=== PATIENT | male | born 1955 | race Caucasian/White ===

== ENCOUNTER 2021-12-18 11:45 | Emergency (ER) | payer BC, SELFPAY ==
--- NOTE | 2021-12-18 | ECG_ITS ---
Test Reason : abd pain Blood Pressure : / mmHG Vent. Rate : 096 BPM Atrial Rate : 096 BPM P-R Int : 156 ms QRS Dur : 078 ms QT Int : 382 ms P-R-T Axes : 078 060 005 degrees QTc Int : 482 ms Sinus rhythm with Premature supraventricular complexes Otherwise normal ECG No previous ECGs available Referred By: Generic ED Physician Electronically Signed By:Arsh Muñoz
--- NOTE | ~2021-12-18 | US_ITS ---
EXAMINATION: US ABDOMEN LIMITED, ultrasound gallbladder CLINICAL INFORMATION: Abdominal pain. COMPARISON: CT abdomen pelvis 12/18/2021 TECHNIQUE: Real-time imaging of the gallbladder only.. FINDINGS; GALLBLADDER: There are small gallstones layer dependently in the gallbladder. Largest measuring 6 mm. There is no gallbladder wall thickening or pericholecystic fluid. COMMON BILE DUCT: Normal in caliber measuring 0.3 cm in diameter. US/US abdomen limited IMPRESSION: Cholelithiasis. No acute change of gallbladder wall. No bile duct dilatation.
--- NOTE | ~2021-12-18 | CT_ITS ---
EXAMINATION: CT ABDOMEN AND PELVIS WITH CONTRAST CLINICAL INFORMATION: Right upper quadrant tenderness. Bloating. Rule out biliary disease. COMPARISON: None TECHNIQUE: Multidetector volumetric images were obtained from the superior aspect of the liver through the pubic symphysis following administration 85 mL of Omnipaque 350 intravenous contrast. Sagittal and coronal reformatted images were obtained on the technologist's workstation. Oral contrast: Yes This CT examination was performed using dose optimization techniques as appropriate, variously including the following: *Automated exposure control *Adjustment of mA and/or kV according to patient size (this includes techniques or standardized protocols for targeted exams where dose is matched to indication/reason for exam; i.e. extremities or head) *Use of iterative reconstruction technique DLP: 637 mGy-cm FINDINGS: LUNG BASES: The visualized lung bases are unremarkable. LIVER, GALLBLADDER, AND BILIARY TREE: The gallbladder is upper normal in size. No gallstones are appreciated by CT scan. There is question of gallbladder wall thickening or pericholecystic fluid adjacent to the neck of the gallbladder. There are 2 small low-attenuation lesions in the left lobe of the liver probably representing cysts. There is no intrahepatic or extrahepatic biliary duct dilatation. The liver is slightly low in attenuation suggestive of fatty infiltration. PANCREAS: There is fatty replacement of the head of the pancreas. The pancreas is otherwise unremarkable. SPLEEN: Unremarkable. ADRENAL GLANDS: Unremarkable. KIDNEYS AND URETERS: There are two 1 cm cysts in the left kidney. There is a small stone in the lower pole of the left kidney. BLADDER: Unremarkable. GASTROINTESTINAL TRACT: There is diverticulosis of the colon. There is wall thickening of the sigmoid colon and it is difficult to exclude mild diverticulitis. There is a small diverticulum of the second portion duodenum adjacent to the pancreatic head. No evidence of obstruction, perforation or abscess is seen. Small and large bowel is otherwise unremarkable. Appendix is unremarkable. There may be a small esophageal hernia. The stomach is otherwise unremarkable. ABDOMINAL WALL: No significant hernia is appreciated. LYMPH NODES: Normal. VASCULAR: Unremarkable. PELVIC VISCERA: Unremarkable. OSSEOUS STRUCTURES: There are degenerative changes spine. CT/CT abdomen pelvis w con IMPRESSION: Upper normal-size gallbladder. Question gallbladder wall thickening versus pericholecystic fluid adjacent to the neck of the gallbladder. Findings are questionable for cholecystitis. Follow-up ultrasound recommended. Mild fatty infiltration of the liver. Liver and left renal cysts. Small nonobstructing left renal stone. Diverticulosis of the colon. There is wall thickening of the sigmoid colon and it is difficult to exclude mild sigmoid diverticulitis Fleischner guidelines were followed.
[2021-12-18 12:00] VITALS: BP 146/83; BP 190/90; PULSE 106; PULSE 97; RESP 22; TEMP 36.1; O2SAT 98; O2SAT 99; BMI 26.9
[2021-12-18 12:21] LABS: MANUAL DIFF FLAG NO
[2021-12-18 12:22] LABS: Basophils Percent Auto 0.1 % (0-2); Hematocrit 40.6 % (42.0-52.0); Hemoglobin 14.2 g/dl (14.0-18.0); Imm Gran Pct Auto 0.7 % (0.0-0.4); Lymphocytes Percent Auto 6.8 % (20-40); Mean Corpuscular Hemoglobin 29.2 pg (27.0-33.0); Mean Corpuscular Volume 83.4 fL (80.0-98.0); Mean Platelet Volume 9.4 fL (9.4-12.4); Monocytes Absolute Auto 0.6 X10*3/uL (0.1-1.2); Monocytes Percent Auto 3.9 % (2-11); Neutrophils Absolute Auto 12.7 x10*3/uL (2.0-8.3); Neutrophils Percent Auto 88.5 % (45-73); Platelet Count 243 X10*3/uL (160-400); Red Blood Count 4.87 X10*6/uL (4.60-5.80); Red Cell Distribution Width 13.2 % (11.0-16.0); White Blood Count 14.4 X10*3/uL (4.8-10.8)
[2021-12-18 12:30] LABS: COVID-19 Test Positive (Negative)
[2021-12-18 12:42] LABS: Alanine Aminotransferase 32 U/L (0-40); Albumin Level 4.5 g/dL (3.5-5.0); Alkaline Phosphatase 76 U/L (39-117); Anion Gap 14 (12-20); Aspartate Amino Transferase 20 U/L (5-37); Bilirubin Direct 0.3 mg/dL (0.0-0.5); Bilirubin Total 0.6 mg/dL (0.0-1.0); Blood Urea Nitrogen 17 mg/dL (9-16); Calcium 9.9 mg/dL (8.4-10.2); Carbon Dioxide 25 mmol/L (22-29); Chloride 98 mmol/L (96-108); Creatinine Clr Calc Pharmacy 80.8; Estimated Glomerular Filt Rate > 60; Glucose Random 250 mg/dL (60-115); Lipase 20 U/L (8-78); Potassium 4.1 mmol/L (3.3-5.1); Sodium 133 mmol/L (135-145)
--- NOTE | 2021-12-18 13:01 | ED_ITS ---
HPI - Abdominal Pain General Chief Complaint: Abdominal Pain Stated Complaint: upper abd pain x12 hours Time Seen by Provider: 12/18/21 12:30 Source: patient Mode of arrival: EMS Limitations: no limitations History of Present Illness HPI narrative: 66-year-old male who presents emergency department for evaluation of abdominal pain. He states that the pain woke him up from sleep last night approximately 12 hours prior to coming to the emergency department. States the pain came on suddenly. Describes the pain is a constant, bloated sensation which is 8/10. This is his 1st episode of this type of pain. He has had associated nausea and has had 3-4 episodes of emesis with no blood in the emesis. The patient states that he had a normal bowel movement yesterday. Today he felt constipated and bloated and tried to Fleet's enemas with no results and no relief his pain. The patient denied fever, chills, chest pain, shortness of breath, dyspnea on exertion, myalgias arthralgias. The patient states that he received 3 shots of the Moderna COVID-19 vaccine with his 3rd shot in September 2021. Related Data Previous Rx's Medication Instructions Recorded ciprofloxacin HCl 500 mg tablet 500 mg PO Q12H 10 Days #20 tab 12/18/21 (Cipro) metronidazole 500 mg tablet 500 mg PO TID 10 Days #30 tab 12/18/21 morphine 15 mg immediate release 15 mg PO Q4-6H PRN #14 tab 12/18/21 tablet Allergies Allergy/AdvReac Type Severity Reaction Status Date / Time No Known Allergies Allergy Verified 12/18/21 12:03 Review of Systems Review of Systems Yes all other systems are reviewed and are negative Physical Exam Vital Signs: Vital Signs: Last Vital Signs Temp 97.0 F 12/18/21 12:00 Pulse 99 12/18/21 14:38 Resp 16 12/18/21 14:38 BP 142/79 H 12/18/21 14:38 Pulse Ox 94 12/18/21 14:38 BMI result Body Mass Index 26.9 Const: Other: Awake, alert, male patient, in distress secondary to his abdominal pain, answers all questions appropriately HENMT: Head: Yes normal to inspection, Yes normocephalic and Yes atraumatic Ears: external ears normal General nose exam: Normal external nose present Face and sinus: Yes normal facial exam Mouth: Normal oral and palatal mucosa present Throat: Yes posterior oropharynx normal Eyes: General: appearance normal, both eyes and all related structures Pupils: Equal, round and reactive pupils present Neck: Neck: Yes normal visual inspection, Yes no lymphadenopathy, Yes trachea midline and Yes supple Chest: Chest palpation & inspection: normal inspection of the chest and normal palpation of entire chest wall Resp: Effort & Inspection: normal respiratory effort and able to speak in complete sentences Auscultation: clear to auscultation bilaterally Cardio: Rate: regular rate Rhythm: regular rhythm Heart sounds: S1 syed l heart sound present, S2 normal heart sound present and no murmurs GI: Inspection: Yes normal to inspection and Yes distended Palpation (GI): Soft to palpation, Tenderness to palpation present (GI) (Rgpg-[id number] di ffuse tenderness with moderate to severe tnder RUQ) in the RUQ and no guarding Auscultation: High-pitched bowel sounds present Rectal Exam - Male: Yes normal sphincter tone and Yes heme negative stool : General: Yes no CVA tenderness Back/Spine/Pelvis: Back: no CVA tenderness Skin: General skin exam: no rashes or lesions noted Neuro: Cranial nerves: Yes CN's II-XII intact bilaterally and Yes Equal, round and reactive pupils present Cognition (Neuro): normal cognition Motor exam (neuro): 5/5 motor strength present throughout Extrem: General: Yes normal to inspection Psych: Appearance: grossly normal Speech and movement: Normal speech and movement present Affect: normal affect Attitude: cooperative Thought process: Normal thought process present Thought content: Normal thought content present Course Course Course Narrative: 66-year-old male who presents emergency department for evaluation of abdominal pain which began last night approximately 12 hours prior to coming the emergency room with nausea, vomiting, bloated sensation. Patient had normal bowel movement yesterday but no bowel movement today. The patient vital signs revealed an elevated blood pressure of 146/83, elevated respiratory rate of 22. Patient's abdomen does appear to be distended, he has [id number] diffuse tenderness with increased tenderness in the right upper quadrant. He does have high-pitched bowel sounds. Differential includes was not limited to biliary disease, pancreatitis, bowel obstruction, constipation. Laboratory evaluation will be obtained. CT scan of the abdomen pelvis with IV contrast was ordered. Patient's pain was treated with morphine 4 mg IV, Toradol 15 mg IV and Zofran 4 mg IV. Patient was also given normal saline IV x1 L. 1313: Laboratory evaluation: WBC elevated 14,400, glucose elevated 250, lipase was normal, LFTs were normal, COVID-19 is positive. Twelve EKG was unremarkable. CT scan of the abdomen pelvis with IV contrast revealed then upper normal size gallbladder with question gallbladder wall thickening versus pericholecystic fluid adjacent to the neck of the gallbladder, concerning for possible cholecystitis The patient also had wall thickening of the sigmoid colon with diverticulosis, unable to exclude diverticulitis. Given these findings, I ordered Levaquin 500 mg IV and Flagyl 500 mg IV. The patient will get a right upper quadrant ultrasound to evaluate his gallbladder. Patient states that his pain is resolved after the above treatment and he does not want any further medications at this time. 1716: The ultrasound revealed gallstones only with no evidence of gallbladder wall thickening/cholecystitis. I did discuss this finding with the patient. The patient was given a another dose of morphine 4 mg IV. The patient's will be discharged home and started on ciprofloxacin 500 mg q.12 hours times 10 days, Flagyl 500 mg 3 times a day times 10 days and Tylenol and ibuprofen with morphine 15 mg every 4-6 hours as needed for pain not relieved by [id number] medications. Patient was given verbal and printed instructions and discharged home. He was told that he will need to isolate for 7-10 days or until he is asymptomatic secondary to his COVID-19 infection. MDM - Abdominal Pain Lab Data Result diagrams: 12/18/21 12:15 12/18/21 12:15 Labs: Lab Results 12/18/21 12/18/21 12/18/21 Range/Units 12:15 12:15 12:15 WBC 14.4 H (4.8-10.8) X10*3/uL RBC 4.87 (4.60-5.80) X10*6/uL Hgb 14.2 (14.0-18.0) g/dl Hct 40.6 L (42.0-52.0) % MCV 83.4 (80.0-98.0) fL MCH 29.2 (27.0-33.0) pg MCHC 35.0 (31.0-36.0) g/dl RDW 13.2 (11.0-16.0) % Plt Count 243 (160-400) X10*3/uL MPV 9.4 (9.4-12.4) fL Immature Gran % (Auto) 0.7 H (0.0-0.4) % Neut % (Auto) 88.5 H (45-73) % Lymph % (Auto) 6.8 L (20-40) % Greer % (Auto) 3.9 (2-11) % Eos % (Auto) 0.0 (0-4) % Baso % (Auto) 0.1 (0-2) % Lymph # (Auto) 1.0 L (1.2-4.9) X10*3/uL Greer # (Auto) 0.6 (0.1-1.2) X10*3/uL Eos # (Auto) 0.0 (0.0-0.4) X10*3/uL Baso # (Auto) 0.0 (0.0-0.2) X10*3/uL Abs Immat Gran (auto) 0.10 H (0.00-0.03) X10*3/uL Absolute Neuts (auto) 12.7 H (2.0-8.3) x10*3/uL Absolute Nucleated RBC 0.000 (0.0-0.012) X10*3/uL Nucleated RBC % (auto) 0.0 (0.0-0.2) /100WBC Sodium 133 L (135-145) mmol/L Potassium 4.1 (3.3-5.1) mmol/L Chloride 98 (96-108) mmol/L Carbon Dioxide 25 (22-29) mmol/L Anion Gap 14 (12-20) BUN 17 H (9-16) mg/dL Creatinine 0.94 (0.5-1.4) mg/dL Estim Creat Clear Calc 80.8 Estimated GFR > 60 Random Glucose 250 H (60-115) mg/dL Calcium 9.9 (8.4-10.2) mg/dL Total Bilirubin 0.6 (0.0-1.0) mg/dL Direct Bilirubin 0.3 (0.0-0.5) mg/dL AST 20 (5-37) U/L ALT 32 (0-40) U/L Alkaline Phosphatase 76 (39-117) U/L Total Protein 8.0 (6.5-8.0) g/dL Albumin 4.5 (3.5-5.0) g/dL Lipase 20 (8-78) U/L COVID-19 (JON) Positive A (Negative) COVID-19 Clin Com See Note ECG Data Attestation: I personally reviewed and interpreted this ECG as follows: Interpretation: Normal sinus rhythm rate of 96, normal OR, QRS interval, prolonged QTC interval of 482 milliseconds, frequent PACs, no PVCs, no ST segment elevation, no ST segment depression. Discharge Plan Discharge Clinical Impression: Diverticulitis, Asymptomatic gallstones, COVID-19 virus infection Patient Disposition: Home, Self-Care Instructions: Diverticulitis (ED), Gallstones (ED), COVID-19 (Coronavirus Disease 2019) (ED) Additional Instructions: Your CT scan is consistent with diverticulitis of the sigmoid colon (the left lower part of your abdomen). The ultrasound revealed that you have gallstones in her gallbladder but no evidence of inflammation of your gallbladder or liver at this time which is reassuring. Your COVID-19 test is positive. Take ibuprofen 200 mg pills, 3 pills every 6 hours as needed for pain. Take Tylenol (acetaminophen) 500 mg pills, 2 pills every 4-6 hours as needed for pain. For pain not relieved by ibuprofen or Tylenol take morphine 15 mg pills, 1 pill every 4 hours as needed for pain. Do not drive or work while taking this medication since they can cause sleepiness. Morphine is a narcotic medication that can be addicting. If you are concerned about addiction you can ask the pharmacist for less pills or do not get this prescription filled. Take ciprofloxacin 500 mg pills, 1 pill every 12 hours for 10 days. Take your 1st dose of this medication tomorrow at 6:00 p.m.. Take Flagyl (metronidazole) 500 mg pills, 1 pill every 6 hours for 10 days. Take your 1st dose of this medication tomorrow morning. Follow-up with your doctor in 2 days. Please return to the emergency department if your symptoms get worse or if you develop any symptoms that are concerning to you. Your COVID-19 test was positive, you will need to isolate for 7-10 days or until your asymptomatic, you should watch for signs pneumonia which include chest pain, cough, shortness of breath, shortness of breath with exertion. Prescriptions: New metronidazole 500 mg tablet 500 mg PO TID 10 Days Qty: 30 RF: 0 ciprofloxacin HCl [Cipro] 500 mg tablet 500 mg PO Q12H 10 Days Qty: 20 RF: 0 morphine 15 mg tablet 15 mg PO Q4-6H PRN (Reason: pain) Qty: 14 RF: 0 PMFSH Past Medical History Medical History (Updated 12/18/21 @ 17:21 by Ronald Melton MD) GERD (gastroesophageal reflux disease) Surgical History (Updated 12/18/21 @ 12:03 by Alexsandra Neves) H/O cardiac radiofrequency ablation Social History Social History Alcohol intake: current Alcohol intake frequency: holidays/special occasions only Patient Tobacco Use Status: Never used Tobacco Use of substances other than those prescribed or required for medical reasons: No Advance Directives: No Advance Directives Information Provided: No
[2021-12-18] MEDS: ondansetron HCL 4 MG/2 ML VIAL IVPUSH (13:02)
[2021-12-18] MEDS: Ketorolac Tromethamine 30 MG/ML VIAL 15 MG IVPUSH (13:03)
[2021-12-18] MEDS: Morphine Sulfate 4 MG/ML CARTRIDGE IVPUSH ×2 (13:03→17:28)
[2021-12-18] MEDS: iohexoL 350 MG/ML 100 ML INFUS..BTL 85 ML IV (14:00)
[2021-12-18 14:38] VITALS: BP 142/79; PULSE 99; RESP 16; O2SAT 94
[2021-12-18] MEDS: metroNIDAZOLE/NS 500 MG/100 ML PIGGYBACK 100 MG IV (16:15)
[2021-12-18 17:27] VITALS: BP 142/73; PULSE 101; RESP 16; O2SAT 96
[2021-12-18] MEDS: levoFLOXacin/D5W 500 MG/100 ML PIGGYBACK 100 MG IV (17:28)
[2021-12-18 18:00] VITALS: BP 124/75; PULSE 106; RESP 16; TEMP 37.2; O2SAT 98
== END 2021-12-18 19:34 | disposition home or self-care (01) ==
PROVIDERS: Emergency Provider Emergency Medicine Emergency Medical Services; PCP General Practice
DX: U07.1 COVID-19 (principal); K57.92 Diverticulitis of intestine, part unspecified, without perforation or abscess without bleeding; K80.20 Calculus of gallbladder without cholecystitis without obstruction; K21.9 Gastro-esophageal reflux disease without esophagitis; Z20.822 Contact with and (suspected) exposure to COVID-19
CPT/HCPCS: 74177; 76705; 80053; 82248; 83690; 85025; 87635; 93005; 96365; 96375; 96376; 99285; J1885; J1956; J2270; J2405; Q9967

== ENCOUNTER 2022-08-04 14:15 | Outpatient (REF) | payer MEDICARE, OTHER, SELFPAY ==
[2022-08-04 18:40] LABS: CT PCR NOT DETECTED (Not Detect.); NG PCR NOT DETECTED (Not Detect.)
[2022-08-05 09:26] LABS: HIV AB/AG Nonreactive (Nonreactive); HIV Num 1 0.08 S/CO (0.00-0.99)
[2022-08-06 06:13] LABS: Syphilis Screen Nonreactive (Nonreactive)
[2022-08-12 16:17] LABS: HSV 1 IgM IFA Negative (Negative); HSV 2 IgM IFA Negative (Negative)
== END 2022-08-04 14:16 | disposition home or self-care (01) ==
LOC: HO.HMGCLDS 14:15
PROVIDERS: PCP Internal Medicine; Visit Provider Emergency Medicine
DX: Z11.3 Encounter for screening for infections with a predominantly sexual mode of transmission (principal); Z11.4 Encounter for screening for human immunodeficiency virus [HIV]; Z20.2 Contact with and (suspected) exposure to infections with a predominantly sexual mode of transmission
CPT/HCPCS: 36415; 86695; 86696; 86780; 87255; 87389; 87491; 87591

== ENCOUNTER 2022-08-04 14:15 | Outpatient (REF) | payer MEDICARE, OTHER, SELFPAY | END 2022-08-04 14:16 | disposition home or self-care (01) | LOC: HO.LAB 14:15 | PROVIDERS: Visit Provider Emergency Medicine | DX: Z13.89 Encounter for screening for other disorder (principal) ==